=== PATIENT | female | born 1970 | race Caucasian/White ===

== ENCOUNTER 2017-09-15 06:49 | Emergency (ER) | payer MEDICAID, OTHER ==
[2017-09-15] MEDS: HYDROCODONE/APAP (5/325) TAB PO (08:23)
== END 2017-09-15 09:43 | disposition home or self-care (01) ==
LOC: FTE 06:49
DX: R68.84 Jaw pain (principal)
CPT/HCPCS: 99284; Z7502

== ENCOUNTER 2017-09-17 06:03 | Emergency (ER) | payer MEDICAID | END 2017-09-17 07:38 | disposition home or self-care (01) | LOC: FTE 07:38 | DX: R68.84 Jaw pain (principal); R51 Headache | CPT/HCPCS: 70450; 70486; 99285-25 ==